=== PATIENT | female | born 1990 | race Native Hawaiian/Other Pacific Islander ===

== ENCOUNTER 2016-06-16 13:20 | Outpatient (CLI) | payer OTHER | END 2016-06-16 13:21 | disposition home or self-care (01) | DX: Z36 Encounter for antenatal screening of mother (principal) ==

== ENCOUNTER 2016-07-07 08:00 | Outpatient (CLI) | payer OTHER | END 2016-07-07 08:01 | disposition home or self-care (01) | DX: Z36 Encounter for antenatal screening of mother (principal) ==

== ENCOUNTER 2016-07-17 08:23 | Outpatient (CLI) | payer OTHER | END 2016-07-17 08:24 | disposition critical access hospital (66) | DX: Z39.0 Encounter for care and examination of mother immediately after delivery (principal) | CPT/HCPCS: A0425; A0427 ==

== ENCOUNTER 2016-07-17 09:01 | Inpatient (IN) | payer OTHER ==
[2016-07-17] MEDS: LACTATED RINGERS 1,000 ML IV SCH ×2 (09:05→20:34)
[2016-07-17] MEDS ORDERED: HYDROCORTISONE 1% CREAM 28 GM TUBE PR PRN (09:32)
[2016-07-17] MEDS ORDERED: diphenhydrAMINE 25 MG CAPSULE PO PRN (09:32)
[2016-07-17] MEDS ORDERED: ACETAMINOPHEN 325 MG TABLET PO PRN (09:32)
[2016-07-17] MEDS ORDERED: HYDROCORTISONE/PRAMOXINE 10 GM PR PRN (09:32)
[2016-07-17] MEDS ORDERED: ONDANSETRON 4 MG/2 ML VIAL IVP PRN (09:32)
[2016-07-17] MEDS ORDERED: OXYTOCIN/LACTATED RINGERS 250 ML IV ONE (09:32)
[2016-07-17] MEDS ORDERED: WITCH HAZEL/GLYCERIN 1 EACH MED..PAD TOP PRN (09:32)
[2016-07-17] MEDS ORDERED: oxyCODONE 5 MG TABLET PO PRN (09:32)
[2016-07-17] MEDS: IBUPROFEN 600 MG TABLET PO SCH ×3 (10:10→23:51)
[2016-07-17] MEDS ORDERED: SODIUM CHLORIDE FLUSH 0.9% 10 ML SYRINGE IVP ONE ×2 (11:12→15:20)
[2016-07-17] MEDS: SIMETHICONE CHEW 80 MG TABLET PO SCH ×2 (20:34→21:30)
[2016-07-17] MEDS: DOCUSATE SODIUM 100 MG CAPSULE PO SCH (21:30)
[2016-07-18] MEDS ORDERED: SODIUM CHLORIDE FLUSH 0.9% 10 ML SYRINGE IVP ONE (02:00)
[2016-07-18] MEDS: IBUPROFEN 600 MG TABLET PO SCH ×3 (06:17→17:53)
[2016-07-18] MEDS: LACTATED RINGERS 1,000 ML IV SCH ×2 (08:49→18:30)
[2016-07-18] MEDS: DOCUSATE SODIUM 100 MG CAPSULE PO SCH ×2 (09:03→21:57)
[2016-07-18] MEDS: SIMETHICONE CHEW 80 MG TABLET PO SCH ×3 (09:04→21:58)
[2016-07-19] MEDS: IBUPROFEN 600 MG TABLET PO SCH ×2 (00:12→06:53)
[2016-07-19] MEDS: SIMETHICONE CHEW 80 MG TABLET PO SCH (12:33)
[2016-07-19] MEDS: DOCUSATE SODIUM 100 MG CAPSULE PO SCH (12:33)
== END 2016-07-19 12:30 | disposition home or self-care (01) | DRG 775 ==
DX: O70.0 First degree perineal laceration during delivery (principal); O99.824 Streptococcus B carrier state complicating childbirth; O43.193 Other malformation of placenta, third trimester; Z86.19 Personal history of other infectious and parasitic diseases